=== PATIENT | male | born 1945 | race Caucasian/White ===

== ENCOUNTER 2021-12-29 18:54 | Inpatient (IN) | payer MEDICARE, OTHER ==
[2021-12-29] VITALS (141 sets, daily range): BP systolic 90–99; BP diastolic 53–60; PULSE 73; TEMP 36.1; O2SAT 86–100
[~2021-12-29] VITALS: Ht 185.4 cm; Wt 97.4 kg
[~2021-12-29 18:54] MED LIST: ADVAIR DISKUS1 DS1 IH; ASPIRIN E.C. 8181 MG PO; CALCIUM 600MG+D1 TAB PO; FLEXERIL10 MG PO; FOSAMAX PO; LIPITOR20 MG PO; MICARDIS HCT 121 TAB PO; MOTRIN800 MG PO; PLAVIX 75MG TAB75 MG PO; PROVENTIL0.09 MG/A1 IH; SPIRIVA18 MCG IH; TYLENOL 325MG325 MG PO; ZYRTEC10 MG PO
[2021-12-29] MEDS ORDERED: LIDODERM 5% PATC1 EA TP (19:10)
[2021-12-29] MEDS ORDERED: HYTRIN 5MG C5 MG/CAP PO (19:10)
[2021-12-29] MEDS ORDERED: LIPITOR 40MG TA40 MG PO (19:11)
[2021-12-29] MEDS ORDERED: SPIRIVA RE2.5 MCG/Ac IH (19:12)
[2021-12-29] MEDS ORDERED: MOTRIN 600600 MG/TAB PO (19:12)
[2021-12-29] MEDS ORDERED: PLAVIX 75MG TAB75 MG PO (19:12)
[2021-12-29] MEDS ORDERED: RT ADVAIR 228 DISKUS IH (19:13)
[2021-12-29] MEDS ORDERED: COMBIRESP IH (19:13)
[2021-12-29] MEDS ORDERED: EUTHYROX25 MCG PO (19:13)
[2021-12-29] MEDS ORDERED: MICARDIS HCT 121 TAB PO (19:13)
[2021-12-29 21:43] LABS: ARTERIAL BLD GAS O2 SATURATION 98.1 % (92-100); ARTERIAL BLD GAS TCO2 CT 23.7; ARTERIAL BLOOD GAS BASE EXCESS -8.5 (-2-2); ARTERIAL BLOOD GAS HCO3 21.7 meq/L (22-26); ARTERIAL BLOOD GAS PCO2 64.7 mmHg (35-45)
[2021-12-29 21:44] LABS: ARTERIAL BLOOD GAS pH 7.14 (7.35-7.45)
[2021-12-29 21:45] LABS: ARTERIAL BLOOD GAS PO2 139.6 mmHg (80-100)
[2021-12-29] MEDS ORDERED: FLEXERIL 1010 MG/TAB PO (22:15)
[2021-12-29] MEDS ORDERED: TOPROL XL 50MG50 MG PO (22:16)
[2021-12-29] MEDS ORDERED: CALCIUM 600-D 61 TAB PO (22:17)
[2021-12-29] MEDS ORDERED: MUCUS RELIEF200 MG PO (22:17)
[2021-12-29] MEDS ORDERED: VITAMIN B12 781 TAB PO (22:18)
[2021-12-29] MEDS ORDERED: FIBERCON PO (22:18)
[2021-12-29 22:36] LABS: HEMATOCRIT 45.4 % (42.0-52.0); HEMOGLOBIN 14.5 g/dl (13.5-18.0); MEAN CELL VOLUME 99 fl (80.0-100.0); MEAN CORPUSCULAR HEMOGLOBIN 32 pg (27-31); MEAN CORPUSCULAR HGB CONC 32 g/dl (33.0-37.0); MEAN PLATELET VOLUME 9.2 fl (7.4-10.4); PLATELET COUNT 344 K/mm3 (130-400); RED BLOOD COUNT 4.58 M/mm3 (4.20-5.60); REDCELL DISTRIBUTION WIDTH-CV 14.8 % (11.5-14.5)
[2021-12-29 22:42] LABS: COLLECTION METHOD CLEAN CATCH
[2021-12-29 22:48] LABS: INR 2.1 (0.8-3.0); PROTHROMBIN TIME 24.3 SECONDS (9.7-12.8)
[2021-12-29 22:50] LABS: URINE APPEARANCE Clear (CLEAR/HAZY); URINE COLOR Yellow (YELLOW); URINE GLUCOSE Negative (NEGATIVE); URINE KETONE Negative (NEGATIVE); URINE PROTEIN(semi-quant) 1+ (NEGATIVE)
[2021-12-29 22:51] LABS: URINE BLOOD 2+ (NEGATIVE); URINE NITRATE Negative (NEGATIVE)
[2021-12-29 22:51] LABS: CALCIUM 7.4 mg/dL (8.4-10.2); CREATININE, serum 3.34 mg/dL (0.72-1.25); POTASSIUM 4.1 mmol/L (3.5-4.5)
[2021-12-29 22:53] LABS: CREATINE KINASE 634 U/L (30-200); LACTATE DEHYDROGENASE 642 U/L (125-220)
[2021-12-29 22:54] LABS: MAGNESIUM 2.2 mg/dL (1.6-2.6); PHOSPHOROUS 6.7 mg/dL (2.3-4.7)
[2021-12-29 23:09] LABS: TROPONIN-I 1.323 ng/mL (0.00-0.033)
[2021-12-29 23:16] LABS: C-REACTIVE PROTEIN > 32.00 mg/dL (0.00-0.50)
[2021-12-29 23:28] LABS: ARTERIAL BLD GAS O2 SATURATION 96.9 % (92-100); ARTERIAL BLD GAS TCO2 CT 22.4; ARTERIAL BLOOD GAS BASE EXCESS -7.9 (-2-2); ARTERIAL BLOOD GAS HCO3 20.8 meq/L (22-26); ARTERIAL BLOOD GAS PCO2 54.5 mmHg (35-45); ARTERIAL BLOOD GAS PO2 108.3 mmHg (80-100)
[2021-12-29 23:35] LABS: PARTIAL THROMBOPLASTIN TIME > 400.0 SECONDS (26.0-37.0)
[2021-12-29 23:53] LABS: MUCOUS Present (NOT PRESENT); URINE BACTERIA Rare /hpf (NONE SEEN)
[2021-12-30] VITALS (1012 sets, daily range): BP systolic 84–150; BP diastolic 52–99; PULSE 80–98; TEMP 36.3–36.9; O2SAT 91–100
[2021-12-30 00:15] LABS: BAND 20 % (0-10); LYMPHOCYTE 1 % (20.0-51.0); METAMYELOCYTE 1 % (0-0); NEUTROPHILS 75 % (42.0-75.2); NUCLEATED RED BLOOD CELL 1 (0-6); PLATELET ESTIMATE NORMAL (NORMAL)
--- NOTE | 2021-12-30 00:40 | NUR ---
PATIENT INITIALLY STARTED ON 20MCG/KG/MIN PER ORDER, BUT RAPIDLY CUT DOSE IN HALF PER PROVIDER AT BEDSIDE DUE TO LOW BP'S.
--- NOTE | 2021-12-30 00:43 | NUR ---
HEPARIN DRIP BEING HELD FOR 2 HOURS PER PROTOCOL. WILL RECHECK LABS AND CONTINUE WITH ORDERED PARAMETERS
[2021-12-30 01:48] LABS: ARTERIAL BLD GAS O2 SATURATION 99.2 % (92-100); ARTERIAL BLOOD GAS BASE EXCESS -5.7 (-2-2); ARTERIAL BLOOD GAS HCO3 20.6 meq/L (22-26); ARTERIAL BLOOD GAS PCO2 43.4 mmHg (35-45)
[2021-12-30 01:49] LABS: ARTERIAL BLOOD GAS PO2 208.2 mmHg (80-100)
--- NOTE | 2021-12-30 03:19 | NUR ---
right x3 ij placed by at 2230 on 12/29. line confirmed by xray and ok to use per dr. salvador
--- NOTE | 2021-12-30 03:20 | NUR ---
PATIENT ADMITTED TO ICU BED 3 FROM [facility] AT 2100 12/29/21. TUBES/LINES/DRAINS PRESENT ON ADMISSION: ETT, 3 PIVS, WILCOX, NG. PATIENT ON LEVO, FENTANYL, NS, PROP, AND HEPARIN DRIPS. SEE DOCUMENTED ASSESSMENT. SAFETY MEAUSRES MAINTAINED. PATIENT IN ISOLATION FOR COVID PNA. WILL CONTINUE TO MONITOR.
--- NOTE | 2021-12-30 05:23 | NUR ---
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 ht 185.42 cm wt 89.2 kg SCr 3.34 with estimated CrCl ~20 ml/min half life ~46.5 hours Plan: Patient is unlikely to follow population based kinetics secondary to renal dysfunction. Will give a single pulse dose of vancomycin 1750 mg (19.6 mg/kg) to target a goal trough of 15-20 mcg/ml. Will follow patient's renal function, potential need for dialysis, micro data, and vancomycin levels as indicated to assess for the timing of subsequent doses of vancomycin. Thank you for this dosing consult.
[2021-12-30 05:32] LABS: ARTERIAL BLD GAS O2 SATURATION 97.8 % (92-100); ARTERIAL BLD GAS TCO2 CT 23.3; ARTERIAL BLOOD GAS BASE EXCESS -4.9 (-2-2); ARTERIAL BLOOD GAS HCO3 21.9 meq/L (22-26); ARTERIAL BLOOD GAS PCO2 46.9 mmHg (35-45); ARTERIAL BLOOD GAS PO2 110.6 mmHg (80-100); ARTERIAL BLOOD GAS pH 7.29 (7.35-7.45)
[2021-12-30 05:34] LABS: HEMATOCRIT 45.6 % (42.0-52.0); HEMOGLOBIN 14.8 g/dl (13.5-18.0); MEAN CELL VOLUME 97 fl (80.0-100.0); MEAN CORPUSCULAR HEMOGLOBIN 32 pg (27-31); MEAN CORPUSCULAR HGB CONC 33 g/dl (33.0-37.0); PLATELET COUNT 367 K/mm3 (130-400); RED BLOOD COUNT 4.69 M/mm3 (4.20-5.60); REDCELL DISTRIBUTION WIDTH-CV 14.7 % (11.5-14.5)
[2021-12-30 05:57] LABS: ALBUMIN 1.9 gm/dL (3.4-4.8); BILIRUBIN,TOTAL 0.5 mg/dL (0.2-1.2); CALCIUM 7.2 mg/dL (8.4-10.2); CREATININE, serum 3.25 mg/dL (0.72-1.25); MAGNESIUM 2.1 mg/dL (1.6-2.6); POTASSIUM 3.7 mmol/L (3.5-4.5); TOTAL PROTEIN 6.3 gm/dL (6.2-8.1)
[2021-12-30 06:59] LABS: BAND 8 % (0-10); LYMPHOCYTE 2 % (20.0-51.0); NEUTROPHILS 90 % (42.0-75.2)
[2021-12-30 07:00] LABS: PLATELET ESTIMATE NORMAL (NORMAL)
[2021-12-30 07:01] LABS: BURR CELLS 1+
--- NOTE | 2021-12-30 08:30 | NUR ---
Patient Heparin drip currently running at 1300 unit/hr at 13ml/hr. Current HepXa level is at goal no drip rate changes to be made at this time as per the protocol. Heparin order in eMAR is showing the drip is running at 1600 unit/hr will correct this to 1300 unit/hr
--- NOTE | 2021-12-30 09:30 | NUR ---
PT ASSESSMENT COMPLETED. PT AGITATION INCREASED DURING ASSESSMENT. INCREASED SEDATION PER DOCTORS ORDERED. BP STABLE AND STARTED TO TITRATED DOWN LEVOPHED. PT REPOSITIONED IN BED.
--- NOTE | 2021-12-30 12:40 | NUR ---
Nursing informs of patient primary contact his spouse Savita. No additional telephone contact for spouse, except home phone in medical record. No information for patient son. Botany Teacher to contact patient spouse to discuss care plan, as patient is currently in isolation at this time.
--- NOTE | 2021-12-30 17:34 | NUR ---
PT BECAME VERY AGITATED THIS MORNING DURING AM ASSESSMENT. INCREASED SEDATION. DURING EVENING REASSESSMENT PT AGAIN BECAME VERY AGITATED. PT WILL NOT BE GOING ON A SEDATION VACATION AT THIS TIME.
--- NOTE | 2021-12-30 18:25 | NUR ---
PT EVENING ASSESSMENT COMPLETED. VSS. PT REPOSITIONED. PT BECAME AGITATED WHEN REPOSITIONED.
[2021-12-30 22:32] LABS: GASTROCCULT POSITIVE; pH GASTRIC CONTENTS 3
--- NOTE | 2021-12-30 22:45 | NUR ---
DISCUSSED WITH VANDANA CHRISTIANSON, CHAD OK TO START VASOPRESSIN AT THIS TIME PT'S LEVOPHED DOSE OVER 0.4MCK/KG/MIN AND BP REMAINS LABILE.
--- NOTE | 2021-12-30 22:57 | NUR ---
GASTROCCULT SAMPLE SENT EARLIER THIS SHIFT GI DRAINAGED NOTED TO BE BROWN, COFFEE GROUND APPEARANCE. RESULT IS POSITIVE FOR BLOOD, VANDANA BENJAMIN APRN NOTIFED. ORDER RECEIVED TO HOLD HEPARIN DRIP AT THIS TIME. WILL CONTINUE TO MONITOR. ORAL SECRETIONS ALSO BLOODY WITH ORAL CARE.
[2021-12-31] VITALS (1378 sets, daily range): BP systolic 79–132; BP diastolic 58–92; PULSE 75–84; TEMP 99.5–100.2; O2SAT 72–100
[2021-12-31 00:39] LABS: HEMATOCRIT 43.7 % (42.0-52.0); HEMOGLOBIN 14.7 g/dl (13.5-18.0)
--- NOTE | 2021-12-31 05:02 | NUR ---
SEDATION VACATION NOT ATTEMPTED AT THIS TIME PT VERY AGITATED IN RESPONSE TO ANY TOUCH/ORAL CARE OR TURNS. PT RESPONDS WITH FULL BODY SHAKING AND FIGHTING, BUT DOES NOT FOLLOW ANY COMMANDS NOR OPENS EYES. SEDATION LEFT CHARTED, FENTANYL 5MCG/HR, PROPOFOL 20MCG/KG/MIN.
[2021-12-31 05:38] LABS: ARTERIAL BLD GAS O2 SATURATION 83.1 % (92-100); ARTERIAL BLD GAS TCO2 CT 18.9; ARTERIAL BLOOD GAS BASE EXCESS -7.9 (-2-2); ARTERIAL BLOOD GAS HCO3 17.8 meq/L (22-26); ARTERIAL BLOOD GAS PCO2 37.1 mmHg (35-45); ARTERIAL BLOOD GAS PO2 52.4 mmHg (80-100)
[2021-12-31 06:08] LABS: HEMATOCRIT 43.2 % (42.0-52.0); HEMOGLOBIN 13.9 g/dl (13.5-18.0); MEAN CELL VOLUME 97 fl (80.0-100.0); MEAN CORPUSCULAR HEMOGLOBIN 31 pg (27-31); MEAN CORPUSCULAR HGB CONC 32 g/dl (33.0-37.0); MEAN PLATELET VOLUME 8.9 fl (7.4-10.4); RED BLOOD COUNT 4.45 M/mm3 (4.20-5.60); REDCELL DISTRIBUTION WIDTH-CV 14.9 % (11.5-14.5)
[2021-12-31 06:21] LABS: ALBUMIN 1.6 gm/dL (3.4-4.8); BILIRUBIN,TOTAL 0.6 mg/dL (0.2-1.2); CALCIUM 7.1 mg/dL (8.4-10.2); CREATININE, serum 2.43 mg/dL (0.72-1.25); MAGNESIUM 1.9 mg/dL (1.6-2.6); PHOSPHOROUS 4.6 mg/dL (2.3-4.7); POTASSIUM 3.9 mmol/L (3.5-4.5); TOTAL PROTEIN 5.5 gm/dL (6.2-8.1)
[2021-12-31 06:27] LABS: PLATELET COUNT 267 K/mm3 (130-400)
[2021-12-31 07:11] LABS: BAND 3 % (0-10); LYMPHOCYTE 1 % (20.0-51.0); NEUTROPHILS 96 % (42.0-75.2); PLATELET ESTIMATE NORMAL (NORMAL)
--- NOTE | 2021-12-31 13:22 | NUR ---
first calender worker contacted patient's son, Yomi [phone] to complete patient's initial assessment and discharge planning needs. Son states that patient's is [place]ian and having a translation service would be beneficial for communication. Worker advised that we will need 's consent for any treatment that patient cannot speak for. Yomi verbalized acceptance and understanding of this information. Karel states that patient does not have any advance directives. Son states that Dr Cedeno is patient's primary care physician in [place] and that patient receives his medications at [facility]. Yomi states that he lives with his parents and that he has a sister that is also supportive. Worker spoke with patient's nurse, Kathy and advised of the above information and need for translation service. Worker is attempting to contact Dr Cedeno to inquire if there are advance directives on file. Karel states that patient has been alert and oriented and independent with his activities of daily living including driving. Yomi states that he and and his mother have not experienced any covid symptons and will reach out to provider if they do.
--- NOTE | 2021-12-31 13:30 | NUR ---
support worker spoke with at Dr Cedeno's office. will search patient's medical records and call back to advise if they have advance directives on file.
--- NOTE | 2021-12-31 14:12 | NUR ---
INCREASED PEEP TO [address] BLACK
[2022-01-01] VITALS (1436 sets, daily range): BP systolic 82–148; BP diastolic 58–92; PULSE 65–73; TEMP 98–99.5; O2SAT 90–98
--- NOTE | 2022-01-01 00:01 | NUR ---
HOB ELEVATED. VENT WHEELS LOCKED. VENT CIRCUIT AND WIRES AND SXN OUT OF REACH OF PT. TOLERATING WELL. WATER BAG CHANGED. RESTRAINTS SECURE. RAILS UP X4. BVM AT HEAD OF BED ON FLOW METER. WILL CONTINUE TO MONITOR
--- NOTE | 2022-01-01 02:26 | NUR ---
BVM ON FLOW METER. NO CHANGES TO ALARMS OR SETTINGS. VISUALIZED THE PTS HEATER TURNED OFF UPON ENTRANCE INTO ROOM. HEATER TURNED BACK ON, WATER RESEVOIR CHECKED AND IS FULL. ASSISTED NURSING WITH TURNING PT TOWARDS R SIDE WITH PILLOW UNDER HIS LEFT SIDE. VENT CORRUGATED TUBE PEPE FOR ARM PLACED AND SECURED. VENT TUBING AND SUCTION ARE OUT OF REACH OF PT. PT RESTING COMFORTABLY.
[2022-01-01 05:05] LABS: ARTERIAL BLD GAS TCO2 CT 23.5; ARTERIAL BLOOD GAS HCO3 22.1 meq/L (22-26); ARTERIAL BLOOD GAS PCO2 44.1 mmHg (35-45); ARTERIAL BLOOD GAS pH 7.32 (7.35-7.45)
[2022-01-01 05:07] LABS: ARTERIAL BLOOD GAS PO2 40.9 mmHg (80-100)
--- NOTE | 2022-01-01 06:02 | NUR ---
PT HAS STRONG REACTION TO ANY TOUCH, MARIA EUGENIA SCORE +1 TO +2 WITH ANY INTERACTION. NO SEDATION VACATION.
[2022-01-01 06:35] LABS: BILIRUBIN,TOTAL 0.7 mg/dL (0.2-1.2); CALCIUM 7.4 mg/dL (8.4-10.2); CREATININE, serum 2.09 mg/dL (0.72-1.25); PHOSPHOROUS 3.4 mg/dL (2.3-4.7); POTASSIUM 3.7 mmol/L (3.5-4.5); TOTAL PROTEIN 5.6 gm/dL (6.2-8.1)
[2022-01-01 06:36] LABS: HEMATOCRIT 38.1 % (42.0-52.0); MEAN CELL VOLUME 101 fl (80.0-100.0); MEAN CORPUSCULAR HGB CONC 31 g/dl (33.0-37.0); MEAN PLATELET VOLUME 9.4 fl (7.4-10.4); RED BLOOD COUNT 3.77 M/mm3 (4.20-5.60); REDCELL DISTRIBUTION WIDTH-CV 15.4 % (11.5-14.5)
--- NOTE | 2022-01-01 06:46 | NUR ---
PT ABG DRAWN FOR AM.
[2022-01-01 07:02] LABS: HEMOGLOBIN 11.9 g/dl (13.5-18.0); MEAN CORPUSCULAR HEMOGLOBIN 32 pg (27-31); PLATELET COUNT 145 K/mm3 (130-400)
[2022-01-01 07:38] LABS: BAND 4 % (0-10); NEUTROPHILS 93 % (42.0-75.2); PLATELET ESTIMATE NORMAL (NORMAL)
[2022-01-01 07:54] LABS: ARTERIAL BLD GAS O2 SATURATION 94.2 % (92-100); ARTERIAL BLD GAS TCO2 CT 25.2; ARTERIAL BLOOD GAS BASE EXCESS -1.6 (-2-2); ARTERIAL BLOOD GAS HCO3 23.9 meq/L (22-26); ARTERIAL BLOOD GAS PCO2 43.5 mmHg (35-45); ARTERIAL BLOOD GAS pH 7.36 (7.35-7.45)
--- NOTE | 2022-01-01 08:00 | NUR ---
PT ASSESSMENT COMPLETE. VSS. PT BECAME AGITATED DURING ASSESSMENT. PT REPOSITIONED.
--- NOTE | 2022-01-01 17:36 | NUR ---
PT WAS RESTLESS DURING SHIFT. HAD TO INCREASE SEDATION PER DOCTORS ORDERS. NO SEDATION VACATION WILL BE TESTED AT THIS TIME.
--- NOTE | 2022-01-01 18:00 | NUR ---
PT EVENING ASSESSMENT COMPLETED. VSS. TITRATED DOWN LEVOPHED PER DOCTORS ORDERS. PT REPOSITIONED IN BED.
--- NOTE | 2022-01-01 19:52 | NUR ---
PT RESTING COMFORTABLY IN BED AT THIS TIME. HE BECOMES AGGITATED EASILY WITH ANY SORT OF STIMULUS. RAILS UP X4. RESTRAINTS ARE SECURE. RN IN ROOM FOR IV AND TO ADMIN MEDS. HOB ELEVATED TO APPROX 30-35 DEGREES. NO OTHER SIGNS OF DISTRESS NOTED. NO CHANGES MADE. AMBU BAG AT HEAD OF BED. VENT WHEELS LOCKED, SUCTIONED A SMALL TO MOD AMT GRAYISH BROWN SECRETIONS. THICK. WILL CONTINUE TO MONITOR.
[2022-01-02] VITALS (1434 sets, daily range): BP systolic 66–123; BP diastolic 47–79; PULSE 61–67; TEMP 98.3–100.2; O2SAT 88–98
--- NOTE | 2022-01-02 03:01 | NUR ---
NO CHANGES MADE AT THIS TIME. PT TOELRATING WELL. PT BECOMES AGGITATED AND HAS SHAKES WITH MOST STIMULI.
[2022-01-02 04:29] LABS: HEMATOCRIT 39.3 % (42.0-52.0); HEMOGLOBIN 12.7 g/dl (13.5-18.0); MEAN CELL VOLUME 98 fl (80.0-100.0); MEAN CORPUSCULAR HEMOGLOBIN 32 pg (27-31); MEAN CORPUSCULAR HGB CONC 32 g/dl (33.0-37.0); MEAN PLATELET VOLUME 9.7 fl (7.4-10.4); PLATELET COUNT 143 K/mm3 (130-400); RED BLOOD COUNT 4.03 M/mm3 (4.20-5.60); REDCELL DISTRIBUTION WIDTH-CV 15.2 % (11.5-14.5)
[2022-01-02 05:01] LABS: CALCIUM 7.3 mg/dL (8.4-10.2); CREATININE, serum 1.62 mg/dL (0.72-1.25); MAGNESIUM 1.9 mg/dL (1.6-2.6); POTASSIUM 3.9 mmol/L (3.5-4.5)
[2022-01-02 05:10] LABS: ARTERIAL BLD GAS O2 SATURATION 94.9 % (92-100); ARTERIAL BLOOD GAS BASE EXCESS -1.1 (-2-2); ARTERIAL BLOOD GAS HCO3 24.4 meq/L (22-26); ARTERIAL BLOOD GAS PCO2 43.4 mmHg (35-45); ARTERIAL BLOOD GAS PO2 78.8 mmHg (80-100); ARTERIAL BLOOD GAS pH 7.37 (7.35-7.45)
[2022-01-02 06:16] LABS: LYMPHOCYTE 2 % (20.0-51.0); METAMYELOCYTE 1 % (0-0); NEUTROPHILS 94 % (42.0-75.2); PLATELET ESTIMATE NORMAL (NORMAL)
--- NOTE | 2022-01-02 07:00 | NUR ---
REPORT RECEIVED FROM PRIYANKA MENDOZA. PT INTUBATED AND SEDATED AT THIS TIME. NO S/S DISCOMFORT. BILATERAL SOFT WRIST RESTRAINTS IN PLACE.
--- NOTE | 2022-01-02 17:48 | NUR ---
SEDATION NOT TITRATED DOWN FOR SEDATION VACATION. PT RESPONDS APPROPRIATELY TO STIMULI.
--- NOTE | 2022-01-02 21:06 | NUR ---
BEDSIDE SHIFT REPORT RECEIVED FROM PRIYANKA ANN. PT CURRENTLY VENTED/SEDATED. ALL VENT SETTINGS ACCORDING TO REPORT. ALL LINES RUNNING ACCORDING TO REPORT (SEE DRIP FLOW SHEET). WILCOX DRAINING APPROPRAITELY. VSS. NO ACUTE CHANGES NOTED AT THIS TIME.
[2022-01-03] VITALS (1383 sets, daily range): BP systolic 63–116; BP diastolic 49–70; PULSE 63–75; TEMP 98.2–101.1; O2SAT 91–98
[2022-01-03 05:11] LABS: HEMATOCRIT 39.3 % (42.0-52.0); HEMOGLOBIN 12.5 g/dl (13.5-18.0); MEAN CELL VOLUME 99 fl (80.0-100.0); MEAN CORPUSCULAR HEMOGLOBIN 32 pg (27-31); MEAN CORPUSCULAR HGB CONC 32 g/dl (33.0-37.0); MEAN PLATELET VOLUME 10.5 fl (7.4-10.4); PLATELET COUNT 174 K/mm3 (130-400); RED BLOOD COUNT 3.97 M/mm3 (4.20-5.60); REDCELL DISTRIBUTION WIDTH-CV 15.4 % (11.5-14.5)
[2022-01-03 05:22] LABS: CALCIUM 7.3 mg/dL (8.4-10.2); CREATININE, serum 1.23 mg/dL (0.72-1.25); POTASSIUM 4.2 mmol/L (3.5-4.5)
[2022-01-03 06:46] LABS: ANISOCYTOSIS 1+; BAND 6 % (0-10); HYPOCHROMIA 2+; LYMPHOCYTE 4 % (20.0-51.0); METAMYELOCYTE 1 % (0-0); NEUTROPHILS 88 % (42.0-75.2); NUCLEATED RED BLOOD CELL 1 (0-6); PLATELET ESTIMATE NORMAL (NORMAL)
[2022-01-03 18:19] LABS: POTASSIUM 4.3 mmol/L (3.5-4.5)
--- NOTE | 2022-01-03 18:28 | NUR ---
SEDATION VACATION ATTEMPTED. PT DID NOT TOLERATE WELL, BECAME AGITATED AND PULLED AT RESTRAINTS. SEDATION CONTINUED AT PREVIOUS RATE. FENTANYL AT 100MCG/HR, PROPOFOL AT 25MCG/KG/MIN.
[2022-01-04] VITALS (1175 sets, daily range): BP systolic 79–128; BP diastolic 53–76; PULSE 62–105; TEMP 99.8–103; O2SAT 87–99
[2022-01-04 04:22] LABS: HEMATOCRIT 39.6 % (42.0-52.0); HEMOGLOBIN 12.5 g/dl (13.5-18.0); MEAN CELL VOLUME 100 fl (80.0-100.0); MEAN CORPUSCULAR HEMOGLOBIN 31 pg (27-31); MEAN CORPUSCULAR HGB CONC 32 g/dl (33.0-37.0); MEAN PLATELET VOLUME 10.4 fl (7.4-10.4); PLATELET COUNT 212 K/mm3 (130-400); RED BLOOD COUNT 3.98 M/mm3 (4.20-5.60); REDCELL DISTRIBUTION WIDTH-CV 15.6 % (11.5-14.5)
[2022-01-04 04:38] LABS: CALCIUM 7.1 mg/dL (8.4-10.2); CREATININE, serum 1.12 mg/dL (0.72-1.25); POTASSIUM 4.3 mmol/L (3.5-4.5)
[2022-01-04 05:11] LABS: LYMPHOCYTE 7 % (20.0-51.0); METAMYELOCYTE 3 % (0-0); NEUTROPHILS 87 % (42.0-75.2); PLATELET ESTIMATE NORMAL (NORMAL)
[2022-01-04 05:13] LABS: HYPOCHROMIA 1+
[2022-01-04 05:15] LABS: ANISOCYTOSIS 1+
--- NOTE | 2022-01-04 07:00 | NUR ---
BEDSIDE REPORT RECEIVED FROM PRIYANKA ARMENTA. PT SEDATED AND INTUBATED AT THIS TIME. BILATERAL SOFT WRIST RESTRAINTS IN PLACE. NO S/S DISCOMFORT.
--- NOTE | 2022-01-04 21:50 | NUR ---
ICE PACKS PLACED IN GROIN AND ARM PITS WITH TYLENOL ADMINISTER ORALLY THROUGH OG TUBE, ATTEMPTS TO DECREASE TEMPS WILL CONTINUE TO OBSERVE
[2022-01-05] VITALS (1155 sets, daily range): BP systolic 71–105; BP diastolic 51–82; PULSE 62–86; TEMP 98.3–101.3; O2SAT 88–100
[2022-01-05 05:52] LABS: ARTERIAL BLD GAS O2 SATURATION 95.2 % (92-100); ARTERIAL BLD GAS TCO2 CT 28.8; ARTERIAL BLOOD GAS BASE EXCESS 1.8 (-2-2); ARTERIAL BLOOD GAS HCO3 27.4 meq/L (22-26); ARTERIAL BLOOD GAS PCO2 46.9 mmHg (35-45); ARTERIAL BLOOD GAS PO2 75.1 mmHg (80-100); ARTERIAL BLOOD GAS pH 7.38 (7.35-7.45)
[2022-01-05 06:20] LABS: HEMATOCRIT 39.1 % (42.0-52.0); HEMOGLOBIN 12.1 g/dl (13.5-18.0); MEAN CELL VOLUME 100 fl (80.0-100.0); MEAN CORPUSCULAR HEMOGLOBIN 31 pg (27-31); MEAN CORPUSCULAR HGB CONC 31 g/dl (33.0-37.0); MEAN PLATELET VOLUME 10.9 fl (7.4-10.4); PLATELET COUNT 224 K/mm3 (130-400); RED BLOOD COUNT 3.91 M/mm3 (4.20-5.60); REDCELL DISTRIBUTION WIDTH-CV 15.6 % (11.5-14.5)
[2022-01-05 06:32] LABS: ALBUMIN 2.1 gm/dL (3.4-4.8); BILIRUBIN,TOTAL 0.6 mg/dL (0.2-1.2); CREATININE, serum 1.11 mg/dL (0.72-1.25); POTASSIUM 3.9 mmol/L (3.5-4.5); TOTAL PROTEIN 5.4 gm/dL (6.2-8.1)
[2022-01-05 07:45] LABS: BASOPHIL 1 % (0-2); LYMPHOCYTE 2 % (20.0-51.0); METAMYELOCYTE 1 % (0-0); NEUTROPHILS 93 % (42.0-75.2); PLATELET ESTIMATE NORMAL (NORMAL)
[2022-01-05 07:46] LABS: ANISOCYTOSIS 1+; HYPOCHROMIA 1+
--- NOTE | 2022-01-05 08:06 | NUR ---
BEDSIDE REPORT RECEIVED FROM PRIYANKA ORDOÑEZ. PT IS LAYING IN BED, ON VENTILATOR. FIO2 60%, TV 600, RR 20, PEEP 8, TUBE MEASURES [address]IP[address] OG IN PLACE MEASURES 60 AT LIP, FEEDING INFUSING AT 55ML/HR. DRIPS INFUSING ORDERED, SEE FLOW SHEET FOR RATES. RIJ CENTRAL LINE WNL. WILCOX IN PLACE TO DEPENDENT DRAINAGE. PT DOES OPEN EYES BUT DOES NOT FOLLOW ANY COMMANDS.
--- NOTE | 2022-01-05 16:45 | NUR ---
Received telephone order to stop Amiodarone drip and intiate PO Amiodarone. See EMAR.
--- NOTE | 2022-01-05 18:31 | NUR ---
SEDATION VACATION NOT DONE AT THIS TIME PT BECOMES TOO AGITATED AND ATTEMPTS TO PULL AT ET TUBE. PT IS UNABLE TO FOLLOW COMMANDS.
[2022-01-06] VITALS (1258 sets, daily range): BP systolic 95–120; BP diastolic 62–80; PULSE 59–74; TEMP 97.9–98.9; O2SAT 89–100
[2022-01-06 03:46] LABS: ARTERIAL BLD GAS O2 SATURATION 97.2 % (92-100); ARTERIAL BLD GAS TCO2 CT 30.6; ARTERIAL BLOOD GAS BASE EXCESS 2.9 (-2-2); ARTERIAL BLOOD GAS PO2 93.3 mmHg (80-100); ARTERIAL BLOOD GAS pH 7.37 (7.35-7.45)
[2022-01-06 04:00] LABS: HEMATOCRIT 38.4 % (42.0-52.0); HEMOGLOBIN 11.9 g/dl (13.5-18.0); MEAN CELL VOLUME 101 fl (80.0-100.0); MEAN CORPUSCULAR HEMOGLOBIN 31 pg (27-31); MEAN CORPUSCULAR HGB CONC 31 g/dl (33.0-37.0); MEAN PLATELET VOLUME 10.8 fl (7.4-10.4); PLATELET COUNT 238 K/mm3 (130-400); RED BLOOD COUNT 3.82 M/mm3 (4.20-5.60); REDCELL DISTRIBUTION WIDTH-CV 15.3 % (11.5-14.5)
[2022-01-06 04:20] LABS: BILIRUBIN,TOTAL 0.6 mg/dL (0.2-1.2); C-REACTIVE PROTEIN 14.36 mg/dL (0.00-0.50); CREATININE, serum 1.24 mg/dL (0.72-1.25); MAGNESIUM 1.5 mg/dL (1.6-2.6); PHOSPHOROUS 2.4 mg/dL (2.3-4.7); POTASSIUM 3.7 mmol/L (3.5-4.5); TOTAL PROTEIN 5.8 gm/dL (6.2-8.1)
[2022-01-06 04:41] LABS: BAND 2 % (0-10); BASOPHIL 1 % (0-2); HYPOCHROMIA 2+; LYMPHOCYTE 7 % (20.0-51.0); METAMYELOCYTE 2 % (0-0); NEUTROPHILS 87 % (42.0-75.2); PLATELET ESTIMATE NORMAL (NORMAL)
[2022-01-06 04:42] LABS: HYPERSEGMENTED POLYS PRESENT
--- NOTE | 2022-01-06 08:52 | NUR ---
BEDSIDE REPORT RECEIVED FROM PRIYANKA ORDOÑEZ. PT LYING IN BED, ON VENTILATOR. FIO2 60, PEEP 8, TV 600, RR 20, MEASURES 25 AT LIP. TUBE FEEDING RUNNING AT 55ML/HR, OG TUBE MEASURES 60 AT LIP. RIJ WNL, ALL PORTS FLUSH EASILY AND HAVE GOOD BLOOD RETURN. ALL DRIPS VERIFIED, SEE FLOWSHEET. WILCOX CATHETER IN PLACE TO DEPENDENT DRAINAGE.
[2022-01-06 09:41] LABS: CHOLESTEROL RISK RATIO 4.3
--- NOTE | 2022-01-06 17:21 | NUR ---
SEDATION VACATION NOT APPROPRIATE AT THIS TIME. PT OPENS EYES AND MOVES ALL EXTREMETIES BUT DOES NOT FOLLOW COMMANDS AND DOES REACH FOR LINES/TUBES.
--- NOTE | 2022-01-06 20:05 | NUR ---
UPON CHANGE OF SHIFT AT 1900, PATIENT'S OG TUBE FOUND TO HAVE BEEN DISLODGED--AT 20CM AT THE LIP. TUBE FEEDS HELD. OG TUBE REMOVED AND REPLACED. WAITING FOR X RAY/ OK TO USE FOR NEW OG TUBE.
[2022-01-07] VITALS (1426 sets, daily range): BP systolic 79–119; BP diastolic 58–72; PULSE 48–88; TEMP 98–99; O2SAT 87–100
[2022-01-07 05:44] LABS: HEMATOCRIT 38.8 % (42.0-52.0); HEMOGLOBIN 12.1 g/dl (13.5-18.0); MEAN CELL VOLUME 100 fl (80.0-100.0); MEAN CORPUSCULAR HEMOGLOBIN 31 pg (27-31); MEAN CORPUSCULAR HGB CONC 31 g/dl (33.0-37.0); MEAN PLATELET VOLUME 10.8 fl (7.4-10.4); PLATELET COUNT 264 K/mm3 (130-400); REDCELL DISTRIBUTION WIDTH-CV 15.1 % (11.5-14.5)
[2022-01-07 05:45] LABS: ARTERIAL BLD GAS O2 SATURATION 97.1 % (92-100); ARTERIAL BLD GAS TCO2 CT 33.2; ARTERIAL BLOOD GAS BASE EXCESS 5.6 (-2-2); ARTERIAL BLOOD GAS HCO3 31.6 meq/L (22-26); ARTERIAL BLOOD GAS PO2 100.2 mmHg (80-100)
[2022-01-07 06:02] LABS: BILIRUBIN,TOTAL 0.9 mg/dL (0.2-1.2); CALCIUM 7.3 mg/dL (8.4-10.2); CREATININE, serum 1.02 mg/dL (0.72-1.25); MAGNESIUM 1.7 mg/dL (1.6-2.6); PHOSPHOROUS 2.1 mg/dL (2.3-4.7); TOTAL PROTEIN 5.8 gm/dL (6.2-8.1)
[2022-01-07 06:16] LABS: BAND 3 % (0-10); LYMPHOCYTE 3 % (20.0-51.0); NEUTROPHILS 91 % (42.0-75.2)
[2022-01-07 06:17] LABS: PLATELET ESTIMATE NORMAL (NORMAL)
--- NOTE | 2022-01-07 07:00 | NUR ---
PT INTUBATED AND SEDATED. VSS. PT ON LEVO, PROP, AND FENT.
--- NOTE | 2022-01-07 17:00 | NUR ---
PT OPENS EYES TO VOICE OR TOUCH. PT MOVES ALL EXTREMETIES. PT DOES NOT FOLLOW COMMANDS OR ANSWER QUESTIONS.
[2022-01-08] VITALS (1426 sets, daily range): BP systolic 89–117; BP diastolic 61–71; PULSE 57–68; TEMP 99–100.2; O2SAT 87–100
[2022-01-08 05:09] LABS: ARTERIAL BLD GAS O2 SATURATION 92.4 % (92-100); ARTERIAL BLD GAS TCO2 CT 31.4; ARTERIAL BLOOD GAS BASE EXCESS 5.4 (-2-2); ARTERIAL BLOOD GAS PO2 65.3 mmHg (80-100); ARTERIAL BLOOD GAS pH 7.45 (7.35-7.45)
--- NOTE | 2022-01-08 05:25 | NUR ---
PT BECOMES AGITATED W/ MINIMUM MOVEMENT, COUGHS/GAGS AT TUBE
[2022-01-08 06:29] LABS: ALBUMIN 1.7 gm/dL (3.4-4.8); CALCIUM 7.2 mg/dL (8.4-10.2); CREATININE, serum 0.91 mg/dL (0.72-1.25); PHOSPHOROUS 2.4 mg/dL (2.3-4.7); POTASSIUM 4.2 mmol/L (3.5-4.5)
--- NOTE | 2022-01-08 07:00 | NUR ---
PT INTUBATED AND SEDATED. PT ON LEVO, PROP, AND FENT. VSS.
--- NOTE | 2022-01-08 12:17 | NUR ---
aged or disabled care worker contacted patient's son, Yomi and scheduled a family meeting for 01/09/22 at 8:30am at the hospital. Yomi stated that his sister, Belgica #[phone] will want to be in attendance via zoom meeting as she resides in [place]. Belgica's email address is [email or web address]. Worker notified Niesha of the above information. Yomi stated that family has a meeting with Dr Cedeno, patient's primary care physician, tomorrow 01/09/22 at 11:30am.
--- NOTE | 2022-01-08 17:00 | NUR ---
PT OPENS EYES TO VOICE AND MOVES ALL EXTREMETIES. PT DOES NOT FOLLOW COMMANDS OR ANSWER QUESTIONS. WILL CONTINUE TO TITRATE NEEDED.
[2022-01-09] VITALS (500 sets, daily range): BP systolic 73–109; BP diastolic 53–88; PULSE 57–85; TEMP 99.3–101; O2SAT 9–100
--- NOTE | 2022-01-09 05:14 | NUR ---
PATIENT HAS BEEN OVER BREATHING VENTILATOR, BITING ON TUBE NO PURPOSEFUL MOVEMENT DOES NOT FOLLOW COMMANDS SEDATION AND PAIN MEDICATION BACK TO ORIGINAL DOSES OF FENTANYL AT 150 MCQ/HR AND PROPOFOLOL AT 40 MCQ/KG/MIN
[2022-01-09 05:21] LABS: ARTERIAL BLD GAS O2 SATURATION 83.1 % (92-100); ARTERIAL BLD GAS TCO2 CT 30.5; ARTERIAL BLOOD GAS BASE EXCESS 4.2 (-2-2); ARTERIAL BLOOD GAS HCO3 29.1 meq/L (22-26); ARTERIAL BLOOD GAS PCO2 44.9 mmHg (35-45); ARTERIAL BLOOD GAS pH 7.43 (7.35-7.45)
[2022-01-09 05:22] LABS: ARTERIAL BLOOD GAS PO2 46.5 mmHg (80-100)
[2022-01-09 06:02] LABS: HEMATOCRIT 37.3 % (42.0-52.0); HEMOGLOBIN 11.8 g/dl (13.5-18.0); MEAN CELL VOLUME 98 fl (80.0-100.0); MEAN CORPUSCULAR HEMOGLOBIN 31 pg (27-31); MEAN CORPUSCULAR HGB CONC 32 g/dl (33.0-37.0); MEAN PLATELET VOLUME 10.9 fl (7.4-10.4); PLATELET COUNT 279 K/mm3 (130-400)
[2022-01-09 06:15] LABS: ALBUMIN 1.7 gm/dL (3.4-4.8); CALCIUM 7.5 mg/dL (8.4-10.2); CREATININE, serum 1.11 mg/dL (0.72-1.25); PHOSPHOROUS 2.2 mg/dL (2.3-4.7); POTASSIUM 4.2 mmol/L (3.5-4.5)
[2022-01-09 07:43] LABS: ANISOCYTOSIS 1+; BAND 7 % (0-10); HYPOCHROMIA 2+; LYMPHOCYTE 2 % (20.0-51.0); NEUTROPHILS 90 % (42.0-75.2); PLATELET ESTIMATE NORMAL (NORMAL)
--- NOTE | 2022-01-09 09:27 | NUR ---
BEDSIDE REPORT RECEIVED FROM PRIYANKA ORDOÑEZ. PT IS ON VENTILATOR, SETTINGS AND TUBE PLACEMENT CHECKED AND VERIFIED. DRIPS RUNNING ORDERED, SEE FLOWSHEET. TUBE FEEDING INFUSING AT 55ML/HR. WILCOX IN PLACE TO DEPENDENT DRAINAGE.
--- NOTE | 2022-01-09 11:15 | NUR ---
Discussed with family what comfort care is prior to extubation. Once patient , notification made to son, Ry #[phone], and daughter, Belgica #[phone]. Ry stated that they would like to use [facility] in [place]. He is deciding on coming back to the hospital but is taking his mother home first. He will call the hospital to let staff know if he is coming back. Primary nurse and Cloth Sponger aware.
--- NOTE | 2022-01-09 11:35 | NUR ---
Called by ICU nurse that patient has . Call placed to [facility]. Patient is not canidate for donation due to dx of COVID in less then the last 14 days. May release body to Home. Called PRIYANKA Ballard - Pallative Care Nurse to inquire if son is planning on revisiting prior to patient being released to home. We are going to give son some time to return call regarding if he plans to visit and then call the home. Home of choice is [facility] in [place]. [phone].
--- NOTE | 2022-01-09 11:47 | NUR ---
shut off worker assisted with translation services for the family meeting involving spouse, son, daughter and Dr Cantor. Family is tearful and decided to extubate patient. Patient .
--- NOTE | 2022-01-09 11:48 | NUR ---
Call placed to Dr. Maza office and made aware of patients time of .
--- NOTE | 2022-01-09 11:59 | NUR ---
0830 FAMILY MEETING HELD W/ PT'S , SON, DAUGHTER VIA ZOOM, DR. MCCORD, AND BICYCLE DESIGNER FOR . FAMILY WISHES TO MAKE PT DNR. 0915 FAMILY IN ROOM W/ PT, ALL PPE WORN. 0957 ET TUBE DISCONTINUED BY RT. IV DRIPS SHUT OFF. PT GIVEN MEDS FOR COMFORT, SEE EMAR. 1054 VITAL SIGNS CEASED. CONFIRMED BY THIS NURSE AND PRIYANKA MENJIVAR. DR LAGOS, CIGAR TOBACCO PROCESSING SUPERVISOR, FAMILY ALL NOTIFIED. BODY CLEANSED AND PREPARED FOR HOME.
--- NOTE | 2022-01-09 13:55 | NUR ---
PT DISCHARGED TO [facility] AT 1350. RIJ LINE LEFT IN PLACE.
== END 2022-01-09 13:50 | disposition expired | DRG 207 ==
LOC: IMCU 18:54 → ICU 21:41
PROVIDERS: Internal Medicine; Internal Medicine Pulmonary Disease; Internal Medicine Sleep Medicine; Nurse Practitioner Family; ADMIT Student in an Organized Health Care Education/Training Program
PROC: 02HV33Z Insertion of Infusion Device into Superior Vena Cava, Percutaneous Approach (ICD-10-PCS; principal; 2021-12-29)
PROC: 5A1955Z Respiratory Ventilation, Greater than 96 Consecutive Hours (ICD-10-PCS; 2021-12-29)
PROC: 3E043XZ Introduction of Vasopressor into Central Vein, Percutaneous Approach (ICD-10-PCS; 2021-12-29)
PROC: 0BH17EZ Insertion of Endotracheal Airway into Trachea, Via Natural or Artificial Opening (ICD-10-PCS; 2021-12-29)
DX: U07.1 COVID-19 (principal); J12.82 Pneumonia due to coronavirus disease 2019; J96.01 Acute respiratory failure with hypoxia; J96.02 Acute respiratory failure with hypercapnia; I21.4 Non-ST elevation (NSTEMI) myocardial infarction; J15.1 Pneumonia due to Pseudomonas; Z51.5 Encounter for palliative care; Z66 Do not resuscitate; G93.41 Metabolic encephalopathy; J44.1 Chronic obstructive pulmonary disease with (acute) exacerbation; I45.2 Bifascicular block; N17.9 Acute kidney failure, unspecified; E87.2 Acidosis; K86.1 Other chronic pancreatitis; K92.2 Gastrointestinal hemorrhage, unspecified; M35.81 Multisystem inflammatory syndrome; E87.0 Hyperosmolality and hypernatremia; I50.20 Unspecified systolic (congestive) heart failure; I47.1 Supraventricular tachycardia; E87.1 Hypo-osmolality and hyponatremia; J91.8 Pleural effusion in other conditions classified elsewhere; I95.9 Hypotension, unspecified; I25.10 Atherosclerotic heart disease of native coronary artery without angina pectoris; I73.9 Peripheral vascular disease, unspecified; R05.3 Chronic cough; D64.9 Anemia, unspecified; M81.0 Age-related osteoporosis without current pathological fracture; F17.210 Nicotine dependence, cigarettes, uncomplicated; R73.9 Hyperglycemia, unspecified; D72.829 Elevated white blood cell count, unspecified; M19.90 Unspecified osteoarthritis, unspecified site; I27.20 Pulmonary hypertension, unspecified; I11.0 Hypertensive heart disease with heart failure; T38.0X5A Adverse effect of glucocorticoids and synthetic analogues, initial encounter; Y92.238 Other place in hospital as the place of occurrence of the external cause; E88.09 Other disorders of plasma-protein metabolism, not elsewhere classified; E87.8 Other disorders of electrolyte and fluid balance, not elsewhere classified; Z79.01 Long term (current) use of anticoagulants; Z79.890 Hormone replacement therapy; Z79.82 Long term (current) use of aspirin
CPT/HCPCS: C9113; J0282; J0456; J1100; J1644; J1650; J1815; J1940; J2060; J2270; J2543; J2704; J3010; J3370; J3475; J3480; J7030; J7050; J7060; J7070; J7120; P9047